=== PATIENT | female | born 1965 | race Caucasian/White ===

== ENCOUNTER 2019-07-30 15:51 | Emergency (ER) | payer BC ==
[2019-07-30 16:41] LABS: Basophils % (A) 0 %; Eosinophils # (A) 0.1 k/uL (0-0.7); Eosinophils % (A) 1 %; HCT 40.8 % (34.0-46.0); HGB 13.5 gm/dL (11.4-16.0); Lymphocytes # (A) 1.7 k/uL (1.0-4.8); Lymphocytes % (A) 25 %; MCH 32.6 pg (25.0-35.0); MCHC 33.2 g/dL (31.0-37.0); MCV 98.2 fL (80.0-100.0); Mean Platelet Volume 6.8; Monocytes # (A) 0.3 k/uL (0-1.0); Monocytes % (A) 4 %; Neutrophils # (A) 4.5 k/uL (1.3-7.7); Neutrophils % (A) 67 %; Platelet Count 462 k/uL (150-450); RBC 4.15 m/uL (3.80-5.40); RDW 12.9 % (11.5-15.5); WBC 6.7 k/uL (3.8-10.6)
[2019-07-30 16:51] LABS: INR 0.9 (<1.2); Partial Thromboplastin Time 27.8 sec (22.0-30.0); Prothrombin Time 9.6 sec (9.0-12.0)
[2019-07-30 16:54] LABS: Albumin 4.5 g/dL (3.5-5.0); Calcium 9.4 mg/dL (8.4-10.2); Potassium 4.4 mmol/L (3.5-5.1); Total Bilirubin 0.5 mg/dL (0.2-1.3); Total Protein 7.3 g/dL (6.3-8.2)
--- NOTE | 2019-07-30 18:04 | ED ---
Chest Pain HPI - General Chief Complaint: Chest Pain Stated Complaint: chest pain Time Seen by Provider: 07/30/19 17:23 Source: patient, RN notes reviewed, old records reviewed Mode of arrival: ambulatory Limitations: no limitations - History of Present Illness Initial Comments: This is a sexual female here for evaluation which has been interpreted occur mostly. Patient is a strong history of heart disease. Patient was occur versus she spoke them today to be evaluated for chest pain. Patient without chest pain today. Especially so that she doesn't think she does get aches and pains very frequently secondary to moving the patient. No trauma. No cough congestion shortness of breath. No fevers or swelling. She herself does not have high blo od pressure or cholesterol or diabetes no smoker MD Complaint: chest pain -: hour(s) Onset: during rest Pain Location: substernal Pain Radiation: LUE, jaw/teeth Severity: mild Severity scale (1-10): 3 Quality: tightness Consistency: intermittent, now resolved Worsens With: nothing Other Symptoms: cough - Related Data Home Medications Medication Instructions Recorded Confirmed Levothyroxine Sodium [Synthroid] 150 mcg PO DAILY 07/30/19 07/30/19 Allergies Allergy/AdvReac Type Severity Reaction Status Date / Time aspirin [From Percodan] Allergy Rash/Hives Verified 07/30/19 17:40 oxycodone [From Percodan] Allergy Rash/Hives Verified 07/30/19 17:40 Review of Systems ROS Statement: Those systems with pertinent positive or pertinent negative responses have been documented in the HPI. ROS Other: All systems not noted in ROS Statement are negative. EKG Findings - EKG Comments: EKG Findings:: EKG shows sinus rate of 89, MO 138, QRS 90, QTc 442 Past Medical History Past Medical History: Thyroid Disorder History of Any Multi-Drug Resistant Organisms: None Reported Past Surgical History: Section, Orthopedic Surgery Past Psychological History: No Psychological Hx Reported Smoking Status: Never smoker Past Alcohol Use History: Occasional Past Drug Use History: None Reported General Exam Limitations: no limitations General appearance: alert, in no apparent distress Head exam: Present: atraumatic, normocephalic, normal inspection Eye exam: Present: normal appearance, PERRL, EOMI. Absent: scleral icterus, conjunctival injection, periorbital swelling ENT exam: Present: normal exam, mucous membranes moist Neck exam: Present: normal inspection. Absent: tenderness, meningismus, lymphadenopathy Respiratory exam: Present: normal lung sounds bilaterally. Absent: respiratory distress, wheezes, rales, rhonchi, stridor Cardiovascular Exam: Present: regular rate, normal rhythm, normal heart sounds. Absent: systolic murmur, diastolic murmur, rubs, gallop, clicks GI/Abdominal exam: Present: soft, normal bowel sounds. Absent: distended, tenderness, guarding, rebound, rigid Extremities exam: Present: normal inspection, full ROM, normal capillary refill. Absent: tenderness, pedal edema, joint swelling, calf tenderness Back exam: Present: normal inspection Neurological exam: Present: alert, oriented X3, CN II-XII intact Psychiatric exam: Present: normal affect, normal mood Skin exam: Present: warm, dry, intact, normal color. Absent: rash Course Vital Signs 07/30/19 07/30/19 16:22 19:03 Temperature 98.1 F 98.7 F Pulse Rate 90 79 Respiratory 20 19 Rate Blood Pressure 115/79 117/73 O2 Sat by Pulse 96 98 Oximetry - Reevaluation(s) Reevaluation #1: Medical record is reviewed Spoke with family of patient at length, with unable to make accurate determination as to cause her symptoms. Family is understanding, heparin with resulting negative. Appropriately return if symptoms, Patient continued to deny chest pain Patient does not want to stay for observation Chest Pain MDM - MDM 54-year-old here with chest pain just was yesterday resolved and has not returned. Patient is normal x-ray normal EKG and normal troponin here the ER. Patient can be discharged Disposition Clinical Impression: Chest pain, Atypical chest pain Disposition: HOME SELF-CARE Condition: Undetermined Instructions (If sedation given, give patient instructions): Chest Pain (ED) Is patient prescribed a controlled substance at d/c from ED?: No Referrals: Anurag Giron MD [Primary Care Provider] - 1-2 days
--- NOTE | 2019-07-30 18:48 | XR ---
EXAMINATION TYPE: XR chest 2V DATE OF EXAM: 07/30/2019 COMPARISON: NONE HISTORY: Chest pain TECHNIQUE: FINDINGS: Heart and mediastinum are normal. Lungs are clear. Diaphragm is normal. Bony thorax appears normal. IMPRESSION: Normal chest
[2019-07-30 19:04] VITALS: BP 117/73; PULSE 79; RESP 19; TEMP 98.7
== END 2019-07-30 19:06 | disposition home or self-care (01) ==
LOC: EC 15:51
DX: R07.89 Other chest pain (principal); R05 Cough; E07.9 Disorder of thyroid, unspecified; Z79.890 Hormone replacement therapy; Z88.6 Allergy status to analgesic agent; Z88.5 Allergy status to narcotic agent; Z86.79 Personal history of other diseases of the circulatory system
CPT/HCPCS: 36415; 71046; 80053; 84443; 84484; 85025; 85610; 85730; 93005; 99285

== ENCOUNTER → 2022-02-24 | Outpatient (CLI) | payer BC ==
--- NOTE | 2022-02-28 18:22 | MM ---
Reason for Exam: Screening (asymptomatic). Last mammogram was performed 14 year(s) and 11 month(s) ago. Patient History: Menarche at age 11. First Full-Term at age 22. Postmenopausal. Hormonal Contraceptives for 6 years from age 28 until age 36. Maternal grandmother had breast cancer, age 73. Risk Values: Sel[place] 5 year model risk: 1.2%. NCI Lifetime model risk: 6.9%. Prior Study Comparison: No prior studies available for comparison. Tissue Density: There are scattered fibroglandular densities. Findings: Analyzed By CAD. There is no suspicious group of microcalcifications or new suspicious mass in either breast. A couple small benign oil cyst calcifications are noted. Overall Assessment: Benign, BI-RAD 2 Management: Screening Mammogram of both breasts in 1 year. 1. Patient should continue monthly self breast exams. 2. A clinical breast exam by your physician is recommended on an annual basis. 3. This exam should not preclude additional follow-up of suspicious palpable abnormalities. Electronically signed and approved by: Effie Mora M.D. Radiologist
--- NOTE | 2022-03-01 09:21 | BD ---
EXAMINATION TYPE: Axial Bone Density DATE OF EXAM: 02/24/2022 COMPARISON: FIRST DEXA AT [facility] CLINICAL HISTORY: 56 years year old Female. ICD-10 CODE: Z78.0 POST MENOPAUSE W/O HRT Height: 62IN Weight: 165 FRAX RISK QUESTIONS: History of Fracture in Adulthood: YES Secondary Osteoporosis: RISK FACTORS HISTORY OF: Family History of Osteoporosis: YES Active: YES Postmenopausal woman: YES MENOPAUSE AT 46 MEDICATIONS: Thyroid Medications: Which medication: SYNTHROID How Lon YEARS Additional Medications: VITAMIN D, MUSCLE RELAXER, Additional History: EXAM MEASUREMENTS: Bone mineral densitometry was performed using the [employer] System. Bone mineral density as measured about the Lumbar spine is: ----- L1-L4(G/cm2): 0.907 T Score Values are as follows: ----- L1: -1.9 ----- L2: -2.2 ----- L3: -2.9 ----- L4: -2.2 ----- L1-L4: -2.[address] [facility] Bone mineral density about the R hip (g/cm2): 0.903 Bone mineral density about the L hip (g/cm2): 0.911 T Score values are as follows: -----R Neck: -1.4 -----L Neck: -1.6 -----R Total: -0.8 -----L Total: -0.[address] [facility] FRAX%s: The graph provided illustrates a 13.3% chance for a major osteoporotic fx and a 1.2% chance f or the hips probability for fx in 10 years time. IMPRESSION: Osteopenia (T Score between -2.5 and -1). There is slightly increased risk of fracture and the patient may be considered for treatment. Re-Screen 2-5 years. NOTE: T-SCORE=SD OF THE YOUNG ADULT MEAN.
== END | disposition home or self-care (01) ==
LOC: RADMAMWWP 10:50
PROVIDERS: ATTEND Family Medicine
DX: Z12.31 Encounter for screening mammogram for malignant neoplasm of breast (principal); M85.89 Other specified disorders of bone density and structure, multiple sites; Z78.0 Asymptomatic menopausal state
CPT/HCPCS: 77063; 77067; 77080

== ENCOUNTER → 2024-02-29 | Outpatient (CLI) | payer BC ==
--- NOTE | 2024-02-29 13:02 | BD ---
EXAMINATION TYPE: Axial Bone Density DATE OF EXAM: 02/29/2024 CLINICAL HISTORY: 58 years old Female. ICD-10 CODE: M85.9 DISORDER OF BONE DENSITY AN Height: 61.7 in Weight: 164 lbs FRAX RISK QUESTIONS: Secondary Osteoporosis: 3. Menopause before 45: age 40 MEDICATIONS: Thyroid Medications: yes Which medication: Synthroid How Lon+ years EXAM MEASUREMENTS: Bone mineral densitometry was performed using the [employer] System. Bone mineral density as measured about the Lumbar spine is: ----- L1-L4(G/cm2): 0.919 T Score Values are as follows: ----- L1: -2.9 ----- L2: -2.0 ----- L3: -2.5 ----- L4: -1.4 ----- L1-L4: -2.2 Z Score Values are as follows: ----- L1: -2.0 ----- L2: -1.1 ----- L3: -1.6 ----- L4: -0.4 ----- L1-L4: -1.2 Bone mineral density has: Increased 1.3% since study of: 02/24/2022 Bone mineral density about the R hip (g/cm2): 0.878 Bone mineral density about the L hip (g/cm2): 0.890 T Score values are as follows: -----R Neck: -1.7 -----L Neck: -1.7 -----R Total: -1.0 -----L Total: -0.9 Z Score values are as follows: -----R Neck: -0.7 -----L Neck: -0.7 -----R Total: -0.3 -----L Total: -0.2 Bone mineral density has: Decreased -2.5% since study of: 02/24/2022 FRAX%s: The graph provided illustrates a 8.7% chance for a major osteoporotic fx and a 0.9% chance fo r the hips probability for fx in 10 years time. IMPRESSION: Osteopenia (T Score between -2.5 and -1). There is slightly increased risk of fracture and the patient may be considered for treatment. Re-Screen 2-5 years. NOTE: T-SCORE=SD OF THE YOUNG ADULT MEAN.
--- NOTE | 2024-03-02 08:14 | MM ---
Reason for Exam: Screening (asymptomatic). Last mammogram was performed 2 year(s) and 0 month(s) ago. Patient History: Menarche at age 11. First Full-Term at age 22. Postmenopausal. Hormonal Contraceptives for 6 years from age 28 until age 36. Maternal grandmother had breast cancer, age 73. Risk Values: Sel[place] 5 year model risk: 1.3%. NCI Lifetime model risk: 6.6%. Prior Study Comparison: 03/07/2007 Bilateral Diagnostic Mammogram, [facility]. 10/20/2007 Right Diagnostic Mammogram, [facility]. 02/24/2022 Bilateral MG screening mammo w CAD, [facility]. Tissue Density: The breasts are heterogeneously dense, which may obscure small masses. Findings: Analyzed By CAD. There is no suspicious group of microcalcifications or new suspicious mass in either breast. Overall Assessment: Benign, BI-RAD 2 Management: Screening Mammogram of both breasts in 1 year. . Patient should continue monthly self-breast exams. A clinical breast exam by your physician is recommended on an annual basis. This exam should not preclude additional follow-up of suspicious palpable abnormalities. Note on Selma scores and lifetime risk: 1. A Selma score greater than 3% is considered moderate risk. If this is the case, consider specialist referral to assess eligibility for a risk reducing agent. 2. If overall lifetime risk for the development of breast cancer is 20% or higher, the patient may qualify for future screening with alternating mammogram and breast MRI. Electronically signed and approved by: Hang Welsh M.D. Radiologis
== END | disposition home or self-care (01) ==
LOC: RADMAMWWP 10:47
PROVIDERS: ATTEND Family Medicine
DX: Z12.31 Encounter for screening mammogram for malignant neoplasm of breast (principal); M81.0 Age-related osteoporosis without current pathological fracture; M85.89 Other specified disorders of bone density and structure, multiple sites; Z78.0 Asymptomatic menopausal state; Z80.3 Family history of malignant neoplasm of breast
CPT/HCPCS: 77063; 77067; 77080